=== PATIENT | male | born 1980 | race Caucasian/White ===

== ENCOUNTER 2019-11-24 07:14 | Day surgery (SDC) | payer OTHER ==
[2019-11-23 09:19] VITALS: BMI 31.9
[2019-11-24] MEDS ORDERED: Midazolam HCl 2 mg/2 ml Vial ONE (08:13)
[2019-11-24] MEDS ORDERED: Fentanyl 100 MCG/2 ML VIAL ONE ×2 (08:13→10:04)
[2019-11-24] MEDS ORDERED: HYDROcodone/Acetaminophen 10/325 mg Tablet PO PRN ×2 (08:49)
[2019-11-24] MEDS ORDERED: Promethazine HCl 25 MG/ML VIAL IM PRN (08:49)
[2019-11-24] MEDS ORDERED: Ropivacaine 0.2% 550 ML 550 ML NERVE BLCK SCH (08:49)
[2019-11-24] MEDS ORDERED: Zolpidem Tartrate 5 MG TAB PO PRN (08:49)
[2019-11-24] MEDS ORDERED: traMADol HCl 50 MG TAB PO PRN ×2 (08:49)
[2019-11-24] MEDS ORDERED: Ondansetron PF 4 MG/2 ML Vial IVP PRN (08:49)
[2019-11-24] MEDS ORDERED: Acetaminophen 325 MG TAB PO PRN (08:49)
[2019-11-24] MEDS ORDERED: Fentanyl 100 MCG/2 ML VIAL IV PRN (08:50)
[2019-11-24] MEDS ORDERED: Lidocaine 1% w/Epinephrine 1:100K 20 ML VIAL ONE (10:26)
[2019-11-24] MEDS ORDERED: Meperidine HCl/PF 25 MG/ML VIAL ONE (11:51)
[2019-11-24] MEDS ORDERED: HYDROcodone/Acetaminophen 5/325 mg Tablet ONE (11:58)
[2019-11-24] MEDS ORDERED: Rocuronium Bromide 10 MG/ML (10ML VIAL) ONE (12:03)
[2019-11-24] MEDS ORDERED: Ropivacaine 0.2% HCl/PF (40 MG/20 ML VIAL) ONE (12:03)
[2019-11-24] MEDS ORDERED: PROPOFOL 200 MG/20 ML VIAL ONE (12:03)
[2019-11-24] MEDS ORDERED: Ropivacaine 0.5% HCl/PF (150 MG/30 ML VIAL) ONE (12:03)
[2019-11-24] MEDS ORDERED: Lidocaine 1% PF 5 ML VIAL ONE (12:03)
--- NOTE | 2019-11-24 12:34 | OP ---
DATE OF PROCEDURE: 11/24/2019 PREOPERATIVE DIAGNOSES: Left shoulder impingement, SLAP tear, and acromioclavicular joint arthritis. POSTOPERATIVE DIAGNOSES: Left shoulder impingement, SLAP tear, and acromioclavicular joint arthritis. PROCEDURES PERFORMED: 1. Left shoulder arthroscopy with subacromial decompression. 2. Open biceps tenodesis. 3. Open distal clavicle excision. ROUNDHOUSE WORKER: Moose Sinclair PA-C BLOOD LOSS: 30. ANESTHESIA: The patient had general anesthetic. He also had a nerve block. IMPLANTS: 7 x 23 BioComposite Bio-Tenodesis screw. DISPOSITION: He did go to recovery room in stable condition. INDICATIONS: This is a 39-year-old male, who has had left shoulder pain that failed to respond to nonoperative measures, and at this time want to have surgery. DESCRIPTION OF PROCEDURE: After all appropriate consent forms were explained and signed, he was taken back to the operative room and at this time was given general anesthetic. Once the level of anesthesia was appropriate, he was rolled into the right lateral decubitus position with all bony prominences well padded. Axillary roll was placed underneath the right axilla, and a beanbag was inflated to hold in this position. The arm was taken through full range of motion and was then suspended with 15 pounds in standard fashion. The left shoulder and upper extremity were then prepped and draped in standard surgical fashion. Bony anatomical landmarks were drawn out, and the subacromial space was infiltrated with Marcaine with epinephrine. Posterior portal was established. Scope was placed into the shoulder joint. Anterior working portal was then made using a needle localization technique. Diagnostic arthroscopy commenced. The articular surface of the humeral head and glenoid were in good condition. There was a degenerative SLAP tear type 2, which destabilized the biceps tendon. The leading edge of subscapularis also had an injury, which led to failure of the anterior portion of the sling. The supraspinatus and remaining rotator cuff were in excellent condition. No loose bodies were noted in the axillary pouch. Anterior, inferior, and posterior labrum were in good condition. At this time, a needle was introduced through the biceps tendon to place a stitch. The biceps was then cut off the labral insertion with a pair of scissors. Once this was done, we then replaced the scope into the subacromial space. A lateral working portal was made, and bursa was removed from off the underlying cuff. Once this was done, the rotator cuff was probed, found to be intact throughout. We did do a small bony decompression with SERFAS energy and the shaver. We did remove all the soft tissue to expose the undersurface of the AC joint, and this was marked with a needle. At this time, scope was removed. Shoulder was drained. A 15 blade was used to make our oblique incision over the AC joint using the needle localization area. The Bovie was used to coagulate any brisk venous bleeding. Full-thickness periosteal flaps were taken to expose the distal centimeter of the clavicle. The saw was used to remove 1 cm of the clavicle. The edges were smoothed off with a rasp, and a small amount of bone wax was placed onto the bleeding cancellous bone. The remaining meniscal tissue was removed from out of the joint. The joint was then thoroughly irrigated and dried. Multiple deep Vicryl sutures were used to close our periosteal sleeve, followed by 2-0 Vicryl and nylon stitches to close this incision. We then turned our attention to the biceps tenodesis. Again, a 15 blade was used to make a small incision down through skin. The Bovie was used to coagulate any brisk venous bleeding. We then entered our deltoid fascia sharply and used finger dissection to split the deltoid in line with its fibers to get down to the underlying transverse humeral ligament. This was opened up and the biceps tendon pulled out. Brisk venous bleeding was coagulated. We then sutured the biceps tendon, removed the intra-articular portion of it. We placed our pin, reamed with a 7 mm reamer to a depth of 25 and a 7 x 23 Bio[employer]posite Bio-Tenodesis screw was placed in standard fashion. Sutures were tied over top, so the screw could not back out. At this time, we thoroughly irrigated and dried this wound. We then allowed our deltoid to fall upon itself. We then ran a Vicryl to close the deltoid fascia. 2-0 Vicryl and nylon sutures were again used to close the incision. Portals were then closed with simple nylon sutures well. At this time, a bulky sterile dressing was applied. The patient was then awakened, and he was taken to recovery room in stable condition. All counts were correct at the end of the case and he did receive preoperative IV antibiotics. Job ID: [id number]
[2019-11-24] MEDS ORDERED: Methocarbamol 500 MG TAB PO SCH (14:45)
== END 2019-11-24 15:30 | disposition home or self-care (01) ==
LOC: SDC 07:14
PROVIDERS: ATTEND Orthopaedic Surgery
PROC: 0PBB0ZZ Excision of Left Clavicle, Open Approach (ICD-10-PCS; principal; 2019-11-24)
PROC: 0RHK04Z Insertion of Internal Fixation Device into Left Shoulder Joint, Open Approach (ICD-10-PCS; principal; 2019-11-24)
PROC: 0RBK4ZZ Excision of Left Shoulder Joint, Percutaneous Endoscopic Approach (ICD-10-PCS; principal; 2019-11-24)
PROC: 0LS20ZZ Reposition Left Shoulder Tendon, Open Approach (ICD-10-PCS; principal; 2019-11-24)
PROC: 3E0T3BZ Introduction of Anesthetic Agent into Peripheral Nerves and Plexi, Percutaneous Approach (ICD-10-PCS; principal; 2019-11-24)
DX: S43.432A Superior glenoid labrum lesion of left shoulder, initial encounter (principal); M19.012 Primary osteoarthritis, left shoulder; M25.812 Other specified joint disorders, left shoulder; G89.18 Other acute postprocedural pain; Z87.891 Personal history of nicotine dependence; Z88.8 Allergy status to other drugs, medicaments and biological substances
CPT/HCPCS: A4306; C1713; J0690; J2001; J2175; J2250; J2704; J2795; J3010